=== PATIENT | male | born 1995 | race Caucasian/White ===

== ENCOUNTER 2023-06-22 23:29 | Emergency (ER) | payer SELFPAY ==
[~2023-06-22] VITALS: Ht 177.8 cm; Wt 105.0 kg
[2023-06-22 23:39] VITALS: BP 150/77; RESP 16; TEMP 98.6; O2SAT 98
[2023-06-22 23:40] VITALS: PULSE 101
== END 2023-06-23 02:40 | disposition home or self-care (01) ==
LOC: ER 06-23 00:27
DX: S06.0X0A Concussion without loss of consciousness, initial encounter (principal); W18.39XA Other fall on same level, initial encounter; Y93.89 Activity, other specified; Y92.89 Other specified places as the place of occurrence of the external cause; Y99.8 Other external cause status
CPT/HCPCS: 99281